=== PATIENT | male | born 1980 | race Caucasian/White ===

== ENCOUNTER 2020-05-28 22:01 | Emergency (ER) | payer MEDICARE ==
[2020-05-28] MEDS ORDERED: SODIUM CHLORIDE 0.9% 1000ML 1,000 ML IVS ONE (22:18)
[2020-05-28] MEDS ORDERED: MORPHINE SULFATE INJ 10 MG/ML VIAL IV ONE ×2 (22:19→23:18)
[2020-05-28] MEDS ORDERED: ONDANSETRON INJ 4 MG/2 ML VIAL IV ONE (22:19)
[2020-05-28] MEDS ORDERED: ACETAMINOPHEN 500 MG TAB PO ONE (22:19)
--- NOTE | 2020-05-28 22:22 | ED.PDOC ---
History of Present Illness - General Chief Complaint: General Stated Complaint: body aches, head ache, SOB, wheezing Time Seen by Provider: 05/28/20 22:14 Source: patient, RN notes reviewed, Vital Signs reviewed Exam Limitations: no limitations - History of Present Illness Initial Comments: Patient is a 39-year-old male who was born with Tetralogy of Fallot, s/p several corrective surgeries, who presents the ED with 1 day history of fever and body aches. States that 2 PM today he developed subjective fever, diffuse headache and diffuse body aches. He has taken Tylenol for the pain at home with some relief. He denies chest pain, shortness of breath, abdominal pain, nausea, vomiting, diarrhea, neck stiffness or any recent exposure to COVID-19. Allergies/Adverse Reactions: Allergies Nelfinavir [From Viracept] Allergy (Verified 05/28/20 22:12) Penicillins Allergy (Verified 05/28/20 22:12) Home Medications: Ambulatory Orders Aspirin (Buffered) 325 mg 325 mg PO DAILY 05/28/20 Clonazepam 05/28/20 Fenofibrate 145 mg PO DAILY 05/28/20 Metoprolol Succinate [Toprol Xl] 100 mg PO DAILY 05/28/20 Pramipexole Dihydrochloride [Pramipexole Dihydrochlori] 0.75 mg PO BID 05/28/20 RX: Amiodarone HCl 200 mg PO 05/28/20 RX: Enalapril Maleate 10 mg PO BID 05/28/20 RX: Rosuvastatin Calcium 40 mg PO 05/28/20 Venlafaxine HCl [Venlafaxine Hydrochloride] 225 mg PO 05/28/20 Review of Systems - Review of Systems Constitutional: States: fever, malaise. Denies: chills EENTM: Denies: blurred vision, nose congestion, throat pain Respiratory: Denies: cough, short of breath Cardiology: Denies: chest pain, edema, palpitations, syncope Gastrointestinal/Abdominal: Denies: abdominal pain, diarrhea, nausea, vomiting Genitourinary: Denies: dysuria, frequency, hematuria Musculoskeletal: States: muscle pain. Denies: neck pain Skin: States: no symptoms reported Neurological: States: headache. Denies: paresthesia, weakness All other Systems: Reviewed and Negative Family Medical History - Family History Mother Family History: Unknown Living Status: Unknown Physical Exam - Physical Exam General Appearance: Alert, Comfortable, No apparent distress, Other - Pt lying on bed in no distress Ears, Nose, Throat: other - No pharyngeal edema or erythema Neck: non-tender, full range of motion, supple, other - No meningismus Respiratory: chest non-tender, lungs clear, normal breath sounds, no respiratory distress Cardiovascular/Chest: regular rate, rhythm, no edema, other - Holosystolic murmur Gastrointestinal/Abdominal: non tender, soft, no pulsatile mass Back Exam: no CVA tenderness, no vertebral tenderness Extremity: normal range of motion, non-tender, no pedal edema, no calf tenderness 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 Stood 6 feet away except for as needed on certain portions of the exam. Differential diagnosis includes but is not limited to COVID-19, viral syndrome, meningitis, sepsis, dehydration, migraine, pneumonia, bronchitis, pyelonephritis 05/28/20 23:19 Recheck patient. Reports headache and body aches are somewhat improved but continues to have pain. Heart rate is a paced rhythm in the low 120s. We will continue to give IV fluids and repeat dose of morphine and observe in ED. CT brain is unremarkable. He has no meningismus, I doubt meningitis at this time. Chest x-ray shows fullness of the pulmonary artery likely related to his previous surgeries. No acute infectious process seen. White blood cell count and lactic acid are normal and will repeat lactic acid at 2 hours. Creatinine is 1.4, patient denies any history of kidney issues. Will provide IV hydration for this. Patient states his physicians have told him not to take NSAIDs and he has been given Tylenol for fever here. We will continue to monitor in the ED. 05/29/20 00:26 Recheck patient. Pain is much improved and patient requesting to go home. His heart rate has persisted in the 120s to low 130s despite improvement in temperature and IV fluids given. Lactic acid is 1.6, but chest x-ray shows signs of vascular congestion so will use IV fluids judiciously. He is on metoprolol and amiodarone as home medications. We will give a small dose of metoprolol and evaluate. 05/29/20 00:53 Recheck patient. Patient states that he has not taken any other pills medications this evening and typically takes metoprolol at night. Following IV metoprolol, monitor shows pulse in upper 90s to low 100 and regular rhythm. Blood pressure is stable. He has been pleasant and requesting to go home. States he feels at baseline and is just hungry at this point and is ready for discharge so that he can go eat. Lactic acid x2 and white blood cell count are normal. Chest x-ray and urine showed no sign of infection. COVID-19 swab was sent and is pending at this time I have discussed with patient to self quarantine until results. He will continue to take his cardiac medications as prescribed and I have asked him to follow-up with his PCP and insurance investigator in 1 to 2 days for continued evaluation. Strict return precautions given. - Results/Orders Results/Orders: EKG- Ventricular paced rhythm, rate 92, occasional PAC's, nonspecific ST abnormality Repeat EKG at 2309-- Electronic ventricular paced rhythm at 127, wide QRS, nonspecific ST abnormality CT brain No acute intracranial findings Chest x-ray #1 cardiomegaly with findings suggestive of vascular congestion #2 enlargement of the right hilum which may be secondary to an enlarged pulmonary artery and can be seen with pulmonary arterial hypertension. However, adenopathy and/or hilar mass is not completely excluded. 05/28/20 22:18 Sodium Chloride 0.9% (Flush) [Saline Flush Syringe] 10 ml IV PRN PRN EKG Stat Pulse Ox Stat 05/28/20 22:19 Pulse Oximetry Assessment DAILY 05/28/20 22:30 SARS-COV2 PCR HIGH RISK MC Stat 05/28/20 22:54 BLOOD CULTURE Stat 05/28/20 23:15 EKG .ONCE Laboratory Results - last 24 hr 05/28/20 05/28/20 05/28/20 22:45 22:45 22:45 WBC 6.5 RBC 5.20 Hgb 15.4 Hct 45.5 MCV 87.5 MCH 29.6 MCHC 33.8 RDW 14.5 Plt Count 158 MPV 10.1 Absolute Neuts (auto) 6.00 Absolute Lymphs (auto) 0.30 L Absolute Monos (auto) 0.20 Absolute Eos (auto) 0.00 Absolute Basos (auto) 0.00 Neutrophils % 92.1 H Lymphocytes % 4.1 L Monocytes % 3.3 Eosinophils % 0.1 L Basophils % 0.4 PT 11.2 H INR 1.13 PTT (SP) 26.6 Sodium 135 Potassium 3.8 Chloride 104 Carbon Dioxide 22 Anion Gap 12.8 BUN 22 H Creatinine 1.46 H BUN/Creatinine Ratio 15.1 Random Glucose 96 Serum Osmolality 273.3 L Lactic Acid Calcium 9.1 Total Bilirubin 0.9 AST 37 ALT 45 Alkaline Phosphatase 56 Serum Total Protein 7.6 Albumin 4.4 Globulin 3.2 Albumin/Globulin Ratio 1.4 Urine Color Urine Appearance Urine pH Ur Specific [place] Urine Protein Urine Glucose (UA) Urine Ketones Urine Blood Urine Nitrite Urine Bilirubin Urine Urobilinogen Ur Leukocyte Esterase Urine RBC Urine WBC Ur Epithelial Cells Urine Bacteria 05/28/20 05/29/20 05/29/20 22:54 00:11 00:22 WBC RBC Hgb Hct MCV MCH MCHC RDW Plt Count MPV Absolute Neuts (auto) Absolute Lymphs (auto) Absolute Monos (auto) Absolute Eos (auto) Absolute Basos (auto) Neutrophils % Lymphocytes % Monocytes % Eosinophils % Basophils % PT INR PTT (SP) Sodium Potassium Chloride Carbon Dioxide Anion Gap BUN Creatinine BUN/Creatinine Ratio Random Glucose Serum Osmolality Lactic Acid 1.6 1.7 Calcium Total Bilirubin AST ALT Alkaline Phosphatase Serum Total Protein Albumin Globulin Albumin/Globulin Ratio Urine Color Yellow Urine Appearance Clear Urine pH 6.0 Ur Specific [place] 1.025 Urine Protein Negative Urine Glucose (UA) Negative Urine Ketones Negative Urine Blood Negative Urine Nitrite Negative Urine Bilirubin Negative Urine Urobilinogen 0.2 Ur Leukocyte Esterase Negative Urine RBC 0-1 Urine WBC 0 Ur Epithelial Cells 0 Urine Bacteria 0 Departure - Departure Clinical Impression: Acute febrile illness, Tachycardia, Viral syndrome Time of Disposition: 00:50 Disposition: Discharge to Home or Self Care Condition: Good Departure Forms: ED Discharge - Pt. Copy, Patient Portal Self Enrollment Instructions: Viral Syndrome (DC) Diet: resume usual diet Activity: increase activity as tolerated Home Medications: Ambulatory Orders Aspirin (Buffered) 325 mg 325 mg PO DAILY 05/28/20 Clonazepam 05/28/20 Fenofibrate 145 mg PO DAILY 05/28/20 Metoprolol Succinate [Toprol Xl] 100 mg PO DAILY 05/28/20 Pramipexole Dihydrochloride [Pramipexole Dihydrochlori] 0.75 mg PO BID 05/28/20 RX: Amiodarone HCl 200 mg PO 05/28/20 RX: Enalapril Maleate 10 mg PO BID 05/28/20 RX: Rosuvastatin Calcium 40 mg PO 05/28/20 Venlafaxine HCl [Venlafaxine Hydrochloride] 225 mg PO 05/28/20
[2020-05-28] MEDS: SODIUM CHLORIDE 0.9% (FLUSH) 10 ML SYG IV PRN (22:35)
--- NOTE | 2020-05-28 22:57 | RAD ---
EXAM: XR Chest, 1 View CLINICAL HISTORY: The patient is 39 years old and is Male; fever TECHNIQUE: Frontal view of the chest. COMPARISON: No relevant prior studies available. FINDINGS: LUNGS: Prominence of the right hilum is noted. The lungs are otherwise clear. PLEURAL SPACE: Unremarkable. No pneumothorax. HEART: The cardiac silhouette is enlarged. MEDIASTINUM: Unremarkable. BONES/JOINTS: Median sternotomy is present. VASCULATURE: Prominence of the central vasculature is present. TUBES, LINES AND DEVICES: Left pacemaker is present. IMPRESSION: 1. Cardiomegaly with findings suggestive of vascular congestion. 2. Enlargement of the right hilum which may be secondary to an enlarged pulmonary artery and can be seen with pulmonary arterial hypertension. However, adenopathy and/or hilar mass is not completely excluded. Further evaluation with a contrasted CT of the chest could be performed if clinically feasible. Electronically signed by: Shital Rooney MD 05/28/2020 10:55 PM CDT
--- NOTE | 2020-05-28 22:58 | CT ---
EXAM: CT Head Without Intravenous Contrast CLINICAL HISTORY: The patient is 39 years old and is Male; new onset RIVERA TECHNIQUE: Axial computed tomography images of the head/brain without intravenous contrast. Sagittal and coronal reformatted images were created and reviewed. This CT exam was performed using one or more of the following dose reduction techniques: automated exposure control, adjustment of the mA and/or kV according to patient size, and/or use of iterative reconstruction technique. COMPARISON: No relevant prior studies available. FINDINGS: BRAIN: Unremarkable. The lyman-white matter differentiation is preserved . No hemorrhage. No significant white matter disease. No edema. No extra-axial fluid collections. VENTRICLES: Unremarkable. No ventriculomegaly. BONES/JOINTS: No acute fracture. SOFT TISSUES: Unremarkable. SINUSES: Small left maxillary sinus mucus retention cyst is present. MASTOID AIR CELLS: Unremarkable as visualized. No mastoid effusion. ORBITS: Unremarkable as visualized. IMPRESSION: No acute intracranial findings. Electronically signed by: Shital Rooney MD 05/28/2020 10:57 PM CDT
[2020-05-29] MEDS ORDERED: METOPROLOL TARTRATE INJ 5 MG/5 ML VIAL IV ONE (00:22)
[2020-05-29] MEDS: SODIUM CHLORIDE 0.9% (FLUSH) 10 ML SYG IV PRN (00:33)
[2020-05-29 01:15] VITALS: BP 120/72; TEMP 101.9; O2SAT 99
== END 2020-05-29 01:10 | disposition home or self-care (01) ==
LOC: ER 22:01
DX: R50.9 Fever, unspecified (principal); R06.02 Shortness of breath; R00.0 Tachycardia, unspecified; R51 Headache; B34.9 Viral infection, unspecified; Z79.82 Long term (current) use of aspirin; Z79.899 Other long term (current) drug therapy
CPT/HCPCS: 70450; 71045; 80053; 81001; 83605; 85025; 85610; 85730; 87040; 87077; 87186; 93005; A4216; J2270; J2405; J7030; U0002

== ENCOUNTER 2020-06-01 07:13 | Emergency (ER) | payer MEDICARE ==
[2020-06-01] MEDS ORDERED: SODIUM CHLORIDE 0.9% 1000ML 1,000 ML ONE (07:31)
[2020-06-01] MEDS ORDERED: SODIUM CHLORIDE 0.9% 1000ML 1,000 ML IVS ONE ×4 (07:40→16:04)
[2020-06-01] MEDS ORDERED: SODIUM CHLORIDE 0.9% (FLUSH) 10 ML SYG IV PRN (07:40)
[2020-06-01] MEDS ORDERED: ACETAMINOPHEN 500 MG TAB PO ONE (07:40)
[2020-06-01] MEDS ORDERED: CEFEPIME 2 GM in SODIUM CHL 0.9% 100ML MINI-BAG 100 ML IVPB ONE (07:42)
--- NOTE | 2020-06-01 07:44 | ED.PDOC ---
History of Present Illness - General Chief Complaint: General Time Seen by Provider: 06/01/20 07:40 Source: patient, family Exam Limitations: no limitations - History of Present Illness Initial Comments: 39 yo M with hx of tetralogy of fallot s/p repair and atrial pacemaker who presents for SOB, associated intermittent dry cough and when that occurs causes CP, sore throat, subjective fever, body aches, decreased appetite, decreased po intake, generalized weakness and fatigue. Pt was seen here three days ago for similar sx and d/c home after workup. Denies abd pain, n/v/d, urinary sx, edema, COVID exposure, RIVERA, neck pain/stiffness. Allergies/Adverse Reactions: Allergies Nelfinavir [From Viracept] Allergy (Verified 06/01/20 07:52) Penicillins Allergy (Verified 06/01/20 07:52) Home Medications: Ambulatory Orders Aspirin (Buffered) 325 mg 325 mg PO DAILY 05/28/20 Clonazepam 05/28/20 Fenofibrate 145 mg PO DAILY 05/28/20 Metoprolol Succinate [Toprol Xl] 100 mg PO DAILY 05/28/20 Pramipexole Dihydrochloride [Pramipexole Dihydrochlori] 0.75 mg PO BID 05/28/20 RX: Amiodarone HCl 200 mg PO 05/28/20 RX: Enalapril Maleate 10 mg PO BID 05/28/20 RX: Rosuvastatin Calcium 40 mg PO 05/28/20 Venlafaxine HCl [Venlafaxine Hydrochloride] 225 mg PO 05/28/20 Review of Systems - Review of Systems Constitutional: States: fever - subjective EENTM: States: throat pain. Denies: eye pain, blurred vision, double vision Respiratory: States: cough, short of breath Cardiology: States: chest pain. Denies: syncope Gastrointestinal/Abdominal: Denies: abdominal pain, diarrhea, nausea, vomiting Genitourinary: Denies: dysuria, frequency, hematuria Musculoskeletal: States: muscle pain. Denies: back pain, neck pain Skin: Denies: lesions, rash Neurological: States: weakness - generalized. Denies: headache, numbness Past Medical History (General) - Patient Medical History Hx Seizures: No Hx Stroke: No Hx Dementia: No Hx Asthma: No Hx of COPD: No Hx Cardiac Disorders: Yes Hx Congestive Heart Failure: No Hx Pacemaker: Yes Hx Hypertension: Yes Hx Thyroid Disease: No Hx Diabetes: No Hx Gastroesophageal Reflux: No Hx Renal Disease: No Hx Cancer: No Hx of HIV: No Hx Hepatitis C: No Hx MRSA: No - Vaccination History Hx Influenza Vaccination: Yes - Social History Hx Tobacco Use: Yes Hx Alcohol Use: Yes Family Medical History - Family History Mother Family History: Unknown Living Status: Unknown Physical Exam - Physical Exam General Appearance: Alert, Well Developed, Well Nourished, Other - Appears as if he does not feel well Eye Exam: bilateral normal Ears, Nose, Throat: other - Dry mucous membranes, no tonsillar exudate or swelling Neck: non-tender, full range of motion, supple, normal inspection Respiratory: chest non-tender, decreased breath sounds, other - No rales, rhonchi, wheezing Cardiovascular/Chest: normal peripheral pulses, other - Tachycardia, trace symmetric BLE edema, no murmur appreciated Peripheral Pulses: radial,right: 2+, radial,left: 2+ Gastrointestinal/Abdominal: soft, other - Mild distention, mild upper abd discomfort. No guarding, rebound. Back Exam: no CVA tenderness, no vertebral tenderness Extremity: normal range of motion, non-tender Neurologic: no motor/sensory deficits, alert Skin Exam: normal color, warm/dry Progress - Progress Progress: 39 yo M with PMH sig for tetralogy of fallot s/p repair who sees Dr. Somers, cardiology at [facility], presents for febrile illness, code sepsis was activated and cefepime given. Secondary to history of heart condition, fluid was judiciously given. HR did improve some, BP stayed around low end of normal. Pt was found to be in acute renal and liver failure, with concerning nodules on CT chest, he only made a small amount of urine at the end of his long stay in the ED after 2L, at which time 250cc/hr NS was started. 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 Frequent rechecks on pt, he continued to be in serious but stable condition. Dr. Somers discussed case with cardiac transplant at [facility], as [facility] is at capacity, attempting to get acceptance at [facility]. 06/01/20 16:48 Significant delay in care in finding a facility with capacity and higher lvl of care for acceptance however pt has now been accepted to the ICU at [facility]. Sahara Reaves MD Emergency Medicine Physician Billing Number [id number] - Results/Orders Results/Orders: 06/01/20 07:40 IV Care:Saline Lock per Protoc QSHIFT Telemetry .ONCE EKG Stat Pulse Ox Stat 06/01/20 07:43 Hold Metformin x 48Hrs [id number] 06/01/20 07:50 BLOOD CULTURE Stat Laboratory Results - last 24 hr 06/01/20 06/01/20 06/01/20 07:50 07:50 07:50 WBC 3.5 L RBC 4.80 Hgb 14.2 Hct 42.3 MCV 88.0 MCH 29.5 MCHC 33.6 RDW 15.5 H Plt Count 39 L* MPV 11.0 H Absolute Neuts (auto) Not Reportable Absolute Lymphs (auto) Not Reportable Absolute Monos (auto) Not Reportable Absolute Eos (auto) Not Reportable Neutrophils % Not Reportable Neutrophils % (Manual) 75.0 Lymphocytes % Not Reportable Lymphocytes % (Manual) 6.0 Monocytes % Not Reportable Monocytes % (Manual) Not Reportable Eosinophils % Not Reportable Basophils % Not Reportable Band Neutrophils 19.0 H* Platelet Estimate Decreased Normal RBC Morphology Normal rbc morph PT INR PTT (SP) pCO2 pO2 HCO3 ABG pH ABG O2 Saturation ABG Base Excess ABG Deoxyhemoglobin Oxyhemoglobin % Carboxyhemoglobin % Methemoglobin % Sat Calc Total Hemoglobin Sodium 128 L Potassium 4.3 Chloride 89 L Carbon Dioxide 16 L Anion Gap 27.3 H BUN 91 H Creatinine 9.38 H* BUN/Creatinine Ratio 9.7 L Random Glucose 106 H Serum Osmolality 285.5 Lactic Acid 4.3 H* Calcium 7.3 L Total Bilirubin 3.3 H* AST 769 H ALT 298 H Alkaline Phosphatase 133 H Troponin I B-Natriuretic Peptide Serum Total Protein 7.1 Albumin 3.2 Globulin 3.9 H Albumin/Globulin Ratio 0.8 L 06/01/20 06/01/20 06/01/20 07:50 07:50 07:50 WBC RBC Hgb Hct MCV MCH MCHC RDW Plt Count MPV Absolute Neuts (auto) Absolute Lymphs (auto) Absolute Monos (auto) Absolute Eos (auto) Neutrophils % Neutrophils % (Manual) Lymphocytes % Lymphocytes % (Manual) Monocytes % Monocytes % (Manual) Eosinophils % Basophils % Band Neutrophils Platelet Estimate Normal RBC Morphology PT 10.7 INR 1.08 PTT (SP) Cancelled pCO2 pO2 HCO3 ABG pH ABG O2 Saturation ABG Base Excess ABG Deoxyhemoglobin Oxyhemoglobin % Carboxyhemoglobin % Methemoglobin % Sat Calc Total Hemoglobin Sodium Potassium Chloride Carbon Dioxide Anion Gap BUN Creatinine BUN/Creatinine Ratio Random Glucose Serum Osmolality Lactic Acid Calcium Total Bilirubin AST ALT Alkaline Phosphatase Troponin I 0.25 H* B-Natriuretic Peptide 973.0 H* Serum Total Protein Albumin Globulin Albumin/Globulin Ratio 06/01/20 06/01/20 06/01/20 09:48 16:31 16:35 WBC RBC Hgb Hct MCV MCH MCHC RDW Plt Count MPV Absolute Neuts (auto) Absolute Lymphs (auto) Absolute Monos (auto) Absolute Eos (auto) Neutrophils % Neutrophils % (Manual) Lymphocytes % Lymphocytes % (Manual) Monocytes % Monocytes % (Manual) Eosinophils % Basophils % Band Neutrophils Platelet Estimate Normal RBC Morphology PT INR PTT (SP) pCO2 27 L pO2 80 L HCO3 13.4 ABG pH 7.302 L ABG O2 Saturation 93.4 L ABG Base Excess -11.4 ABG Deoxyhemoglobin 6.5 H Oxyhemoglobin % 91.9 L Carboxyhemoglobin % 0.7 Methemoglobin % Sat 0.9 Calc Total Hemoglobin 13.7 Sodium 132 L Potassium 4.0 Chloride 94 L Carbon Dioxide 16 L Anion Gap 26.0 H BUN 97 H Creatinine 10.92 H* BUN/Creatinine Ratio 8.9 L Random Glucose 69 L D Serum Osmolality 293.0 Lactic Acid 2.6 H* Calcium 6.8 L* Total Bilirubin AST ALT Alkaline Phosphatase Troponin I B-Natriuretic Peptide Serum Total Protein Albumin Globulin Albumin/Globulin Ratio 06/01/20 16:35 WBC RBC Hgb Hct MCV MCH MCHC RDW Plt Count MPV Absolute Neuts (auto) Absolute Lymphs (auto) Absolute Monos (auto) Absolute Eos (auto) Neutrophils % Neutrophils % (Manual) Lymphocytes % Lymphocytes % (Manual) Monocytes % Monocytes % (Manual) Eosinophils % Basophils % Band Neutrophils Platelet Estimate Normal RBC Morphology PT INR PTT (SP) pCO2 pO2 HCO3 ABG pH ABG O2 Saturation ABG Base Excess ABG Deoxyhemoglobin Oxyhemoglobin % Carboxyhemoglobin % Methemoglobin % Sat Calc Total Hemoglobin Sodium Potassium Chloride Carbon Dioxide Anion Gap BUN Creatinine BUN/Creatinine Ratio Random Glucose Serum Osmolality Lactic Acid Calcium Total Bilirubin AST ALT Alkaline Phosphatase Troponin I 0.31 H* B-Natriuretic Peptide Serum Total Protein Albumin Globulin Albumin/Globulin Ratio CT chest: EXAM DESCRIPTION: Chest w/o Contrast : Computed Tomography. CLINICAL HISTORY: 39 years Male SOB began May 28. No history of renal disease. Serum creatinine of 9.0. EGFR equals 5. Tetralogy of Fallot with surgical correction. COMPARISON: CT scan abdomen and pelvis on the same visit. TECHNIQUE: Spiral-axial scans at 5 x 5 mm intervals through the lungs and thorax without IV contrast. 2.5 x 5 mm lung algorithm axial reconstructions. Coronal and sagittal 2.0 Mm reconstructions. No adverse reactions. Total Exam DLP: 670 mGy-cm. This exam was performed according to our departmental dose-optimization program which includes automated exposure control, adjustment of the mA and/or kV according to patient size and/or use of iterative reconstruction technique; to reduce radiation dose to as low as reasonably achievable (ALARA). Nodule measurements under 10 mm are given as mean value of 3 axes diameters. FINDINGS: Lungs and large airways: Bilateral leg multifocal small consolidative and groundglass densities more peripheral than central. Several bilaterally masslike densities in the upper lobes and more ill-defined and groundglass appearance in the lower lobes. Largest of these is approximately 17 x 16 mm in the left lower lobe. No diffuse infiltrate. No perihilar peribronchial wall cuffing. Pleural spaces: Minimal pleural thickening but no definite effusion on the left and no pneumothorax. Mediastinum and Saima: Evaluation limited due to lack of IV contrast mediastinal lipomatosis. No dominant soft tissue mass or enlarged lymph nodes. Great vessels and Heart: Evaluation limited due to lack of IV contrast. Enlarged central right pulmonary arteries. Surgical sutures and hardware with enlarged right ventricle and left ventricle. Pacing wires in customary position. Soft tissues of neck base, axillae, and chest wall: Evaluation limited due to lack of IV contrast. Pacemaker superior anterior left chest. Pacing leads into the left subclavian vein. Normal size lymph nodes. Upper abdomen: Please see images and report from CT scan abdomen and pelvis. Osseous structures: Sternotomy wires. Multiple concavities of the endplates on the thoracic spine. IMPRESSION: 1. Multiple focal infiltrates bilaterally or ill-defined pulmonary nodules not associated with calcifications. More masslike in the upper lung moore and more groundglass in the lower lung moore. Peripheral more than central. Imaging features can be seen with COVID-19 pneumonia, though are nonspecific and can occur with a variety of infectious and noninfectious processes. COVID-19 pneumonia can be associated with acute renal failure. Also consider mycobacterial fungal and atypical bacterial pneumonia, hemorrhagic metastases, septic emboli, bronchioloalveolar cell carcinoma, and hypersensitivity pneumonitis. Also less common inflammatory conditions. 2. Enlarged right ventricle and right pulmonary artery and right pulmonary lobar arteries. Pacemaker and pacing wires in customary position. CRITICAL COMMUNICATION: The critical value was communicated directly by Dr. Rodríguez via phone call, with Dr. Reaves, at approximately 935 hours, on June 01, 2020. Electronically signed by: Rohit Rodríguez MD 06/01/2020 9:[address] abd/pelvis: EXAM DESCRIPTION: Abdoment/Pelvis w/o Contrast: Computed Tomography. CLINICAL HISTORY: 39 years Male Pain, distention COMPARISON: Chest CT scan without contrast on this visit. TECHNIQUE: Spiral-axial scans 5.0 mm intervals through the abdomen and pelvis without oral or IV contrast. Coronal and sagittal 2.0 mm reconstructions. Total Exam DLP: 1025 mGy-cm. This exam was performed according to our departmental CT dose-optimization program which includes automated exposure control, adjustment of the mA and/or kV according to patient size and/or use of iterative reconstruction technique; to reduce radiation dose to as low as reasonably achievable (ALARA). FINDINGS: Lung bases and pleura: Please see images and report on chest CT scan without contrast on this visit. Liver, stomach, spleen, and adrenal glands: Borderline hepatomegaly with no focal lesions. Borderline splenomegaly. Stomach and adrenal glands negative. Pancreas, Gallbladder, and Ducts: Gallbladder visualized. Duct and pancreas negative. Kidneys and Ureters: No echogenic stones or hydronephrosis. Normal cortical thickness. No pararenal fluid. Mesentery: Negative; no free air or free fluid. Aorta: Unremarkable. Small Bowel: Minimal gas with normal caliber. Terminal Ileum/Cecum: Normal caliber including appendix. No inflammatory azam nges. Colon: Minimal fecal matter mostly decompressed. Diverticula distal colon with moderate redundancy of the sigmoid colon, containing fecal matter also. No complications. Pelvic Organs: Unremarkable. Spine and Bony Pelvis: Minimal concavities in the lower thoracic endplates and upper lumbar endplates. No compression type vertebral body fractures. Abdominal Wall/Back Soft Tissues: Small bilateral fatty inguinal hernias with no bowel incarceration. IMPRESSION: Limited due to lack of IV contrast due to acute renal failure. No mass, no free air, and no free fluid. No inflammatory changes in the mesentery. Borderline enlargement of the liver and spleen. Electronically signed by: Rohit Rodríguez MD 06/01/2020 9:47 AM CDT CXR: EXAM DESCRIPTION: Chest,1 View CLINICAL HISTORY: SOB COMPARISON: May 28, 2020 FINDINGS: Again seen are postoperative changes in the mediastinum. Prominent cardiomegaly, stable. A multilead cardiac device remains in place. The central bronchovascular markings are indistinct with bilateral hilar prominence suggestive of central pulmonary vascular congestion. Patchy airspace consolidation in the right lung base with a possible tiny right-sided effusion. There is no pneumothorax or acute fracture. IMPRESSION: Cardiomegaly, pulmonary vascular congestion and a possible tiny right-sided effusion. Right hilar prominence also likely related to central pulmonary vascular congestion, less likely adenopathy or other right hilar mass. Follow-up chest radiograph is recommended to document stability or resolution. Electronically signed by: Isidro Otero MD 06/01/2020 8:15 AM CDT Vital Signs - 24 hr 06/01/20 06/01/20 06/01/20 07:34 07:41 07:50 Temperature 103.0 F H Pulse Rate 136 H Pulse Rate [ 136 H 136 H brachial] Respiratory 24 24 Rate Blood Pressure 129/72 [Left Arm] O2 Sat by Pulse 94 L 91 L Oximetry 06/01/20 06/01/20 06/01/20 08:30 09:00 12:00 Temperature 102.2 F H 102.2 F H 101.2 F H Pulse Rate 123 H Pulse Rate [ 28 L 122 H 126 H brachial] Respiratory 28 H 24 28 H Rate Blood Pressure 121/78 119/79 120/77 [Left Arm] O2 Sat by Pulse 91 L 95 92 L Oximetry 07/08/20 07/08/20 07/08/20 13:00 14:00 16:00 Temperature 101.2 F H 99.5 F 98.7 F Pulse Rate Pulse Rate [ 127 H 132 H 121 H brachial] Respiratory 25 H 25 H 20 Rate Blood Pressure 120/82 116/68 95/57 [Left Arm] O2 Sat by Pulse 97 92 L Oximetry 06/01/20 06/01/20 06/01/20 17:00 18:00 18:05 Temperature 98.7 F 98.9 F 98.9 F Pulse Rate 118 H 114 H Pulse Rate [ 118 H 114 H 114 H brachial] Respiratory 20 20 20 Rate Blood Pressure 97/68 89/65 89/65 [Left Arm] O2 Sat by Pulse 95 95 95 Oximetry - EKG/XRAY/CT EKG: nonspecific ST T wave Chg Comments: Atrial paced, Rate 167 Departure - Departure Clinical Impression: Thrombocytopenia Renal failure Qualifiers: Renal failure chronicity: acute Acute renal failure type: unspecified Qualified Code(s): N17.9 - Acute kidney failure, unspecified Sepsis Qualifiers: Sepsis type: sepsis due to unspecified organism Sepsis acute organ dysfunction status: with acute organ dysfunction Severe sepsis acute organ dysfunction type: acute renal failure Acute renal failure type: unspecified Severe sepsis shock status: without septic shock Qualified Code(s): A41.9 - Sepsis, unspecified organism; R65.20 - Severe sepsis without septic shock; N17.9 - Acute kidney failure, unspecified Acute liver failure Qualifiers: Hepatic coma status: without hepatic coma Qualified Code(s): K72.00 - Acute and subacute hepatic failure without coma Time of Disposition: 08:34 Disposition: Transfer to Hospital Condition: Serious Home Medications: Ambulatory Orders Aspirin (Buffered) 325 mg 325 mg PO DAILY 05/28/20 Clonazepam 05/28/20 Fenofibrate 145 mg PO DAILY 05/28/20 Metoprolol Succinate [Toprol Xl] 100 mg PO DAILY 05/28/20 Pramipexole Dihydrochloride [Pramipexole Dihydrochlori] 0.75 mg PO BID 05/28/20 RX: Amiodarone HCl 200 mg PO 05/28/20 RX: Enalapril Maleate 10 mg PO BID 05/28/20 RX: Rosuvastatin Calcium 40 mg PO 05/28/20 Venlafaxine HCl [Venlafaxine Hydrochloride] 225 mg PO 05/28/20
[2020-06-01] MEDS ORDERED: MORPHINE SULFATE INJ 10 MG/ML VIAL IV ONE ×4 (08:08→16:04)
--- NOTE | 2020-06-01 08:16 | RAD ---
EXAM DESCRIPTION: Chest,1 View CLINICAL HISTORY: SOB COMPARISON: May 28, 2020 FINDINGS: Again seen are postoperative changes in the mediastinum. Prominent cardiomegaly, stable. A multilead cardiac device remains in place. The central bronchovascular markings are indistinct with bilateral hilar prominence suggestive of central pulmonary vascular congestion. Patchy airspace consolidation in the right lung base with a possible tiny right-sided effusion. There is no pneumothorax or acute fracture. IMPRESSION: Cardiomegaly, pulmonary vascular congestion and a possible tiny right-sided effusion. Right hilar prominence also likely related to central pulmonary vascular congestion, less likely adenopathy or other right hilar mass. Follow-up chest radiograph is recommended to document stability or resolution. Electronically signed by: Isidro Otero MD 06/01/2020 8:15 AM CDT
--- NOTE | 2020-06-01 09:42 | CT ---
EXAM DESCRIPTION: Chest w/o Contrast : Computed Tomography. CLINICAL HISTORY: 39 years Male SOB began May 28. No history of renal disease. Serum creatinine of 9.0. EGFR equals 5. Tetralogy of Fallot with surgical correction. COMPARISON: CT scan abdomen and pelvis on the same visit. TECHNIQUE: Spiral-axial scans at 5 x 5 mm intervals through the lungs and thorax without IV contrast. 2.5 x 5 mm lung algorithm axial reconstructions. Coronal and sagittal 2.0 Mm reconstructions. No adverse reactions. Total Exam DLP: 670 mGy-cm. This exam was performed according to our departmental dose-optimization program which includes automated exposure control, adjustment of the mA and/or kV according to patient size and/or use of iterative reconstruction technique; to reduce radiation dose to as low as reasonably achievable (ALARA). Nodule measurements under 10 mm are given as mean value of 3 axes diameters. FINDINGS: Lungs and large airways: Bilateral leg multifocal small consolidative and groundglass densities more peripheral than central. Several bilaterally masslike densities in the upper lobes and more ill-defined and groundglass appearance in the lower lobes. Largest of these is approximately 17 x 16 mm in the left lower lobe. No diffuse infiltrate. No perihilar peribronchial wall cuffing. Pleural spaces: Minimal pleural thickening but no definite effusion on the left and no pneumothorax. Mediastinum and Saima: Evaluation limited due to lack of IV contrast mediastinal lipomatosis. No dominant soft tissue mass or enlarged lymph nodes. Great vessels and Heart: Evaluation limited due to lack of IV contrast. Enlarged central right pulmonary arteries. Surgical sutures and hardware with enlarged right ventricle and left ventricle. Pacing wires in customary position. Soft tissues of neck base, axillae, and chest wall: Evaluation limited due to lack of IV contrast. Pacemaker superior anterior left chest. Pacing leads into the left subclavian vein. Normal size lymph nodes. Upper abdomen: Please see images and report from CT scan abdomen and pelvis. Osseous structures: Sternotomy wires. Multiple concavities of the endplates on the thoracic spine. IMPRESSION: 1. Multiple focal infiltrates bilaterally or ill-defined pulmonary nodules not associated with calcifications. More masslike in the upper lung moore and more groundglass in the lower lung moore. Peripheral more than central. Imaging features can be seen with COVID-19 pneumonia, though are nonspecific and can occur with a variety of infectious and noninfectious processes. COVID-19 pneumonia can be associated with acute renal failure. Also consider mycobacterial fungal and atypical bacterial pneumonia, hemorrhagic metastases, septic emboli, bronchioloalveolar cell carcinoma, and hypersensitivity pneumonitis. Also less common inflammatory conditions. 2. Enlarged right ventricle and right pulmonary artery and right pulmonary lobar arteries. Pacemaker and pacing wires in customary position. CRITICAL COMMUNICATION: The critical value was communicated directly by Dr. Rodrgíuez via phone call, with Dr. Reaves, at approximately 935 hours, on June 01, 2020. Electronically signed by: Rohit Rodríguez MD 06/01/2020 9:41 AM CDT
--- NOTE | 2020-06-01 09:48 | CT ---
EXAM DESCRIPTION: Abdoment/Pelvis w/o Contrast: Computed Tomography. CLINICAL HISTORY: 39 years Male Pain, distention COMPARISON: Chest CT scan without contrast on this visit. TECHNIQUE: Spiral-axial scans 5.0 mm intervals through the abdomen and pelvis without oral or IV contrast. Coronal and sagittal 2.0 mm reconstructions. Total Exam DLP: 1025 mGy-cm. This exam was performed according to our departmental CT dose-optimization program which includes automated exposure control, adjustment of the mA and/or kV according to patient size and/or use of iterative reconstruction technique; to reduce radiation dose to as low as reasonably achievable (ALARA). FINDINGS: Lung bases and pleura: Please see images and report on chest CT scan without contrast on this visit. Liver, stomach, spleen, and adrenal glands: Borderline hepatomegaly with no focal lesions. Borderline splenomegaly. Stomach and adrenal glands negative. Pancreas, Gallbladder, and Ducts: Gallbladder visualized. Duct and pancreas negative. Kidneys and Ureters: No echogenic stones or hydronephrosis. Normal cortical thickness. No pararenal fluid. Mesentery: Negative; no free air or free fluid. Aorta: Unremarkable. Small Bowel: Minimal gas with normal caliber. Terminal Ileum/Cecum: Normal caliber including appendix. No inflammatory changes. Colon: Minimal fecal matter mostly decompressed. Diverticula distal colon with moderate redundancy of the sigmoid colon, containing fecal matter also. No complications. Pelvic Organs: Unremarkable. Spine and Bony Pelvis: Minimal concavities in the lower thoracic endplates and upper lumbar endplates. No compression type vertebral body fractures. Abdominal Wall/Back Soft Tissues: Small bilateral fatty inguinal hernias with no bowel incarceration. IMPRESSION: Limited due to lack of IV contrast due to acute renal failure. No mass, no free air, and no free fluid. No inflammatory changes in the mesentery. Borderline enlargement of the liver and spleen. Electronically signed by: Rohit Rodríguez MD 06/01/2020 9:47 AM CDT
[2020-06-01 19:09] VITALS: BP 89/65; TEMP 98.9; O2SAT 95
== END 2020-06-01 18:05 | disposition short-term general hospital (02) ==
LOC: ER 07:13
DX: N17.9 Acute kidney failure, unspecified (principal); A41.9 Sepsis, unspecified organism; D69.6 Thrombocytopenia, unspecified; K72.00 Acute and subacute hepatic failure without coma; I10 Essential (primary) hypertension; Q21.3 Tetralogy of Fallot; R53.1 Weakness; I95.9 Hypotension, unspecified
CPT/HCPCS: 36415; 36600; 71045; 71250; 74176; 80048; 80053; 82803; 82805; 83605; 83880; 84484; 85025; 85610; 87040; 87077; 87186; 93005; 94760; J0692; J2270; J7030; J7050

== ENCOUNTER → 2020-12-05 | Outpatient (CLI) | payer MEDICARE | LOC: BFHH 14:07 | PROVIDERS: ATTEND Internal Medicine | DX: N18.6 End stage renal disease (principal) ==

== ENCOUNTER → 2020-12-26 | Outpatient (CLI) | payer MEDICARE ==
--- NOTE | 2020-12-27 08:08 | US ---
EXAM DESCRIPTION: Venous Doppler sonogram , Lower Extremity LT CLINICAL HISTORY: pain in left leg COMPARISON: None Available. TECHNIQUE: Left lower extremity venous duplex Doppler with color Doppler imaging FINDINGS: Doppler evaluation of the left lower extremity deep veins was performed. Normal color flow is seen in the common femoral, superficial femoral, profunda femoral and greater saphenous veins. Normal flow is seen in the popliteal vein and veins below the knee in the calf. Normal venous compressibility and flow augmentation. IMPRESSION: Negative for evidence of deep venous thrombosis on left lower extremity venous Doppler sonogram. 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
== END ==
LOC: LAB.O 14:13
PROVIDERS: ATTEND Nurse Practitioner Family
DX: M79.605 Pain in left leg (principal); G47.00 Insomnia, unspecified

== ENCOUNTER → 2021-01-20 | Outpatient (CLI) | payer MEDICARE | LOC: BFHH 13:29 | PROVIDERS: ATTEND Nurse Practitioner Family | DX: I13.0 Hypertensive heart and chronic kidney disease with heart failure and stage 1 through stage 4 chronic kidney disease, or unspecified chronic kidney disease (principal); I50.82 Biventricular heart failure; N18.9 Chronic kidney disease, unspecified ==